=== PATIENT | female | born 1940 | race Caucasian/White ===

== ENCOUNTER → 2017-08-14 08:47 | Outpatient (CLI) | payer MEDICARE, SELFPAY ==
[2017-08-14 12:31] LABS: Absolute Lymphocyte Count 0.72 X10^3/ul (0.83-4.51); Absolute Neutrophil Count 4.7 X10^3/uL (2.0-7.7); Basophil# 0.02 X10^3/uL; Basophil% 0.3 % (0-1); Eosinophil# 0.12 X10^3/uL; Hematocrit 45.2 % (37-47); Hemoglobin 15.6 g/dl (12.0-15.0); Lymphocyte # 0.72 X10^3/ul (4.0); Mean Corp Hgb Conc 34.5 g/gl (32-36); Mean Corpuscular Hgb 30.3 pg (27.0-32.0); Mean Corpuscular Volume 87.8 fL (81-99); Mean Platelet Vol. 10.6 fl (6.2-12.0); Monocyte# 0.47 X10^3/uL; Monocyte% 7.8 % (0-10); Neutrophil # 4.65 X10^3/uL (2.7-7.7); Neutrophil % 77.7 % (47-70); Platelet Count 183 K/mm3 (150-450); RBC Distribution Width CV 14.6 % (11.6-14.6); RBC Distribution Width SD 46.7 fl (35.1-43.9); Red Blood Count 5.15 M/mm3 (4.2-5.4)
[2017-08-14 12:36] LABS: POSITIVE COUNT NO; POSITIVE DIFFERENTIAL NO; POSITIVE MORPHOLOGY NO
[2017-08-14 12:52] LABS: ALB/GLOB Ratio 1.4 RATIO (0.9-2.4); AST(SGOT) 16 U/L (15-37); Alanine Aminotransfer ALT/SGPT 21 U/L (13-56); Albumin, Serum 4.4 g/dL (3.2-5.0); Alkaline Phosphatase 83 U/L (45-117); Anion Gap 9 (5-15); BUN 8 mg/dL (7-18); Calcium,Total 9.8 mg/dL (8.5-10.1); Chloride 97 mmol/L (98-107); EST Glomerular Filtration Rate 74 mL/min (>60); Est Glom Filt Rate - Afr Amer 89 mL/min (>60); Globulin 3.1 g/dL (2.2-4.2); Glucose 86 mg/dL (74-106); Potassium 4.3 mmol/L (3.5-5.1); Protein, Total 7.5 g/dL (6.4-8.2); Sodium Level 134 mmol/L (136-145); T4 Free Direct 1.18 ng/dL (0.76-1.46); Thyroid Stim Hormone (TSH) 1.56 uIU/mL (0.358-3.74)
== END ==
PROVIDERS: Family Provider Family Medicine; PCP Family Medicine; Visit Provider Family Medicine
DX: I10 Essential (primary) hypertension (principal); E78.5 Hyperlipidemia, unspecified; F41.9 Anxiety disorder, unspecified
CPT/HCPCS: 36415; 80053; 84439; 84443; 85025

== ENCOUNTER → 2017-12-13 14:48 | Outpatient (CLI) | payer MEDICARE, SELFPAY ==
[2017-12-13 14:54] LABS: Bacteria 0 SEEN /hpf (None Seen); Mucous, Urine 0 SEEN /hpf (<or=2+); Red Blood Cells-Urine 0 SEEN /hpf (0-5); Squamous Epithelial Cells - UA 0 SEEN /hpf (5-10)
[2017-12-13 15:01] LABS: Color, Urine Yellow (Yellow); Glucose, Dipstick Normal (Normal); Ketone-Dipstick Negative (Negative); Leukocyte Esterase-Dipstick 25 /ul (Negative); Nitrite-Dipstick Negative (Negative); Occult Blood-Urine 25 /ul (Negative); Protein-Dipstick Negative (Negative); Urine Bilirubin Dipstick Negative (Negative); Urine Clarity Clear (Clear); Urine Urobilinogen Normal (Normal)
[2017-12-13 15:09] LABS: White Blood Cells 0-5 SEEN /hpf (0-5)
== END ==
PROVIDERS: Family Provider Family Medicine; PCP Family Medicine; Visit Provider Physician Assistant Surgical
DX: R31.9 Hematuria, unspecified (principal)
CPT/HCPCS: 81001; 87077; 87086; 87088; 87186

== ENCOUNTER → 2017-12-23 15:38 | Outpatient (CLI) | payer MEDICARE, SELFPAY ==
[2017-12-23 18:24] LABS: Color, Urine Yellow (Yellow); Glucose, Dipstick Normal (Normal); Ketone-Dipstick Negative (Negative); Leukocyte Esterase-Dipstick 100 /ul (Negative); Nitrite-Dipstick Negative (Negative); Occult Blood-Urine 25 /ul (Negative); Protein-Dipstick Negative (Negative); Specific Gravity, Urine 1.005 (1.002-1.030); Urine Bilirubin Dipstick Negative (Negative); Urine Clarity Clear (Clear); Urine Urobilinogen Normal (Normal)
== END ==
PROVIDERS: Family Provider Family Medicine; PCP Family Medicine; Visit Provider Family Medicine
DX: R31.0 Gross hematuria (principal); Z72.0 Tobacco use
CPT/HCPCS: 81002; 87086; 87088

== ENCOUNTER 2018-08-26 09:10 | Day surgery (SDC) | payer MEDICARE, SELFPAY ==
--- NOTE | 2018-07-20 12:38 | PCM.HP.BLA ---
History and Physical Date of Admission: 07/29/18 This H&P performed in my office 07/20/18 Pre-Op History and Physical ? HPI: The patient is a 77 year old female presenting for pre-operative visit. She is scheduled for?resection of vulvar lesions, for?MARKUS III on?07/29/18. ??Procedure discussed along with risks, benefits and complications. ?Other alternatives discussed for management. Consent form signed??Yes.? PAST?MEDICAL?HISTORY PAST MEDICAL HISTORY Diagnosis Date ? COPD (chronic obstructive pulmonary disease) (HCC) ? ? HTN (hypertension) ? ? Lymphoma (HCC) 03/2016 ? ? PAST?SURGICAL?HISTORY PAST SURGICAL HISTORY Procedure Laterality Date ? REMV CATARACT EXTRACAP,INSERT LENS ? ? ? bilateral ? TUBAL LIGATION HX ? CURRENT?MEDICATIONS ? Current Outpatient Medications: promethazine (PHENERGAN) 25 mg tablet Take 1 tablet by mouth every 6 hours as needed. FOR NAUSEA Disp: 90 tablet Rfl: 1 acetaminophen (TYLENOL) 325 mg tablet Take 325 mg by mouth every 6 hours as needed. Disp: Rfl: GUAIFENESIN/DEXTROMETHORPHAN (TUSSIN DM MAX ORAL) Take 1 teaspoonful by mouth as needed. using twice daily Disp: Rfl: PSEUDOEPHED/DP-HYDRAMINE (BENADRYL ALLERGY-SINUS ORAL) Take 1 tablet by mouth twice daily as needed. Disp: Rfl: TETRAHYDROZOLINE HCL/ZN SULF (ALLERGY RELIEF EYE DROPS OPHTHALMIC) Use 1 Drop in eyes as needed. Disp: Rfl: sodium chloride (SALINE NASAL) 0.65 % nasal spray Use 1 [place] in the nose as needed. Disp: Rfl: BENICAR HCT 40-12.5 mg per tablet Take 1 tablet by mouth once daily. Disp: 30 tablet Rfl: 0 amLODIPine (NORVASC) 10 mg tablet Take 1 tablet by mouth once daily. Disp: 30 tablet Rfl: 0 pravastatin (PRAVACHOL) 40 mg tablet Take 1 tablet by mouth once daily. Disp: 30 tablet Rfl: 0 ? No current facility-administered medications for this visit.? ? ALLERGIES:?Ampicillin; Codeine; Doxycycline; Iodine; Levaquin [Levofloxacin]; Lorabid [Loracarbef] ? PERSONAL HISTORY:? SOCIAL?HISTORY Social History ??Socioeconomic History ?Marital status: ?Spouse name: Not on file ?Number of children: Not on file ?Years of education: Not on file ?Highest education level: Not on file ??Social Needs ?Financial resource strain: Not on file ?Food insecurity - worry: Not on file ?Food insecurity - inability: Not on file ?Transportation needs - medical: Not on file ?Transportation needs - non-medical: Not on file ??Occupational History ?Occupation: RETIRED ??Tobacco Use ?Smoking status: Current Every Day Smoker ?Packs/day: 2.00 ?Years: 50.00 ?Pack years: 100 ?Types: Cigarettes ?Smokeless tobacco: Never Used ?Tobacco comment: Pt has cut back to 1 pack daily. ??Substance and Sexual Activity ?Alcohol use: No ?Drug use: No ?Sexual activity: Never ??Other Topics ?Concerns: ?Not on file ??Social History Narrative ?Not on file ? FAMILY HISTORY:? FAMILY?HISTORY FAMILY HISTORY Problem Relation Age of Onset ? Cancer Maternal Aunt ?unknown ? Breast Cancer Maternal Aunt ? ? Diabetes Sister ? ? Heart Father ? ? Stroke Mother ? ROS:? ? GENERAL: denies fevers or chills ENDOCRINOLOGY: has not been on steroids Cardiology : denies palpitations or chest pain Respiratory: denies SOB or cough Hematology: denies history of prolonged bleeding or easy bruising or VTE Allergy: Denies history of personal or family history of allergy to anesthesia ? ? ? PHYSICAL EXAMINATION: ? VITALS:?Weight 133 lb (60.3 kg). ? GENERAL:??The patient is well nourished, well hydrated in no acute distress. ?, The patient is oriented to time, place, and person. NECK:?Supple. No lynphadenopathy, normal thyroid, no thyromegaly. LUNGS:?Clear to auscultation bilaterally. no wheezes, rhonchi or rales HEART:?Regular rate and rhythm, Normal heart sounds and No murmurs or gallops GENITALIA:?Normal external genitalia, Urethral meatus normal, Bladder nontender, normal vagina and normal vaginal tone, normal cervix, normal uterus, size and consistency, normal adnexa without masses or tenderness and perineum WNL ? ? IMPRESSION:?MARKUS III ? PLAN:???The risks/benefits/alternatives and personal involved for the planned?vulvar resection?were reviewed with the patient. Her questions were answered to her satisfaction and she desires to proceed. ?Consent was signed. ?I reviewed with her postop instructions and expectations. ? ? I have reviewed and updated past medical and surgical history, medications and allergies? Fatimah Snider M.D.
[2018-07-29 11:12] VITALS: BP 147/77; PULSE 82; RESP 16; TEMP 36.2; O2SAT 99; BMI 26.1
--- NOTE | 2018-08-25 18:01 | PCM.HP.BLA ---
History and Physical Date of Admission: 08/26/18 77-year-old female with MARKUS 3 of the vulva presents for partial resection today. Patient has history of lymphoma and cervical cancer. Physical exam: Awake alert no acute distress Lungs clear no wheeze Heart S1-S2 regular rate and rhythm MEDICAL SALES REPRESENTATIVE exam performed previously shows a vulvar lesion that is raised, irregular borders. Approximately 4 to 5 cm in diameter. Assessment and plan: 77-year-old female with MARKUS 3 of the vulva for resection of the vulvar lesion. Risk benefits and alternatives have been discussed. Questions were answered to her satisfaction she desires to proceed. Please see previous H&P, this H&P axes and update to the one previously entered.
--- NOTE | 2018-08-25 18:06 | HP.PCM_ITS ---
History and Physical Date of Admission: 08/26/18 77-year-old female with MARKUS 3 of the vulva presents for partial resection today. Patient has history of lymphoma and cervical cancer. Physical exam: Awake alert no acute distress Lungs clear no wheeze Heart S1-S2 regular rate and rhythm BRAZER CONTROLLED ATMOSPHERIC FURNACE exam performed previously shows a vulvar lesion that is raised, irregular borders. Approximately 4 to 5 cm in diameter. Assessment and plan: 77-year-old female with MARKUS 3 of the vulva for resection of the vulvar lesion. Risk benefits and alternatives have been discussed. Questions were answered to her satisfaction she desires to proceed. Please see previous H&P, this H&P axes and update to the one previously entered.
--- NOTE | 2018-08-26 | IMM_PTH ---
PATIENT: LUIS DIALLO [place] [facility] [place][id number] AGE/SX: 77/F ROOM: RE08/26/[address]: Dr. Fatimah Snider MD : 1940 BED: DIS: 08/26/2018 SPEC #: [id number] RECD: 08/27/18 14:22 STATUS: CYNDY REQ #: [id number] HCINEDU: 08/26/18 00:[address]: Fatimah Snider DEPT: IMMUNOHISTOCHEMISTRY RECD BY: Renetta Cagle ENTERED: 08/27/18 14:23 SP TYPE: IMMUNO OTHR DR: Dr. Sammy Garcia MD Tissues: Vulva, NOS Procedures: P16 (add) KI-67 (initial) PHYSICIAN & [place] [address] SPECIMEN INFORMATION: Tissue Source: Vulvar lesion excision Clinical Info: Vulvar lesion Specimen Number: [id number] #2 CPT code: 10069, 33262 METHODOLOGY: Deparaffinized sections of prefer/formalin-fixed tissue or PAP/DQ stained slides are incubated with monoclonal/polyclonal antibodies/oligonucleotide probes. Localization is made via biotin free immunoperoxidase method. Appropriate controls are performed and reacted as expected. Results on target cell population are indicated in the following table: RESULTS: ANTIBODY / CLONE RESULT Block 2 Ki-67 (30-9) positive P16 (E6H4) positive, block staining These tests were developed and their performance characteristics determined by [facility]. They may not have been cleared or approved by the U.S. Food and Drug Administration. The FDA has determined that such clearance or approval is not necessary. 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 SJ:kalli 08/30/18
[2018-08-26 09:33] VITALS: BP 130/65; PULSE 90; RESP 18; TEMP 36.5; O2SAT 100; BMI 26.1
--- NOTE | 2018-08-26 10:45 | LES_PTH ---
PATIENT: LUIS DIALLO LOC: [facility] [place] U#:[id number] AGE/SX: 77/F ROOM: RE08/26/[address]: Dr. Fatimah Snider MD : 1940 BED: DIS: 08/26/2018 SPEC #: [id number] RECD: 08/26/18 13:16 STATUS: CYNDY TIFFANY #: [id number] CHINEDU: 08/26/18 10:[address]: Fatimah Snider DEPT: SURGICAL PATHOLOGY RECD BY: Mamadou Carvalho ENTERED: 08/26/18 13:37 SP TYPE: Lesion OTHR DR: Dr. 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 See comment. LELO:kalli 08/27/18 COMMENT Immunohistochemistry ([id number]) for surrogate HPV marker (p16) supports the above diagnosis. The focal area of moderate squamous dysplasia (MARKUS-II) is present at one peripheral resection margin of the intermediate sized piece. Clinical correlation and appropriate follow up are necessary. MICROSCOPIC DESCRIPTION Slides are reviewed. GROSS DESCRIPTION Received in fixative is one container labeled with the patient's name and designated vulvar lesions. The specimen consists of three polypoid/papillomatous portions of [place] mucosal tissue. The first tissue portion measures 2 x 1 x 1.2 cm, the second tissue portion measures 1.5 x 1.3 x 0.5 cm, and the third tissue portion measures 1.5 x 0.9 x 0.6 cm. The cut surfaces are inked and the tissue is serially cross-sectioned. The specimen is totally submitted as follows: 1 - largest tissue portion, 2 - second tissue portion, 3 - smallest tissue portion. / CE:kalli 08/26/18 TC: 5 [facility]: [id number]
[2018-08-26 11:19] VITALS: BP 108/68; BP 130/65; PULSE 84; RESP 16; TEMP 37.1; O2SAT 92
--- NOTE | 2018-08-26 11:20 | DCINST_ITS ---
You will use the following diet at home:: Regular Your food should be the consistency of: Regular Discharge Activity: May Drive, May Shower, May Take a Tub Bath - soak in plain warm water 1-2 times a day May resume sexual activity in: - - after follow up Call your doctor if your incision/area has: Sudden Increased Bleeding, Foul Smelling Discharge Call your doctor if you observe: Fever of 101 or Higher, - - Keep your sutures clean and dry. Rinse with water after bowel movements and urination. You may put triple antibiotic over the sutures 3 times a day to keep them protected. You may use stool softeners as needed Allergies/Adverse Reactions: Allergies ampicillin Allergy (Verified 07/22/18 11:11) Unknown codeine Allergy (Verified 07/22/18 11:11) Unknown levofloxacin [From Levaquin] Allergy (Verified 07/22/18 11:11) Unknown loracarbef [From Lorabid] Allergy (Verified 07/22/18 11:11) Unknown fentanyl Adverse Reaction (Verified 07/22/18 11:20) very groggy andout of it Medications to take at Discharge Alprazolam [Xanax Xr] 0.5 mg PO Q6H PRN PRN 03/24/16 Amlodipine Besylate/Benazepril [Amlodipine-Benazepril 10-20 mg] 10 mg PO DAILY 03/24/16 Pravastatin [Pravachol] 40 mg PO QHS 03/24/16 dextromethorphan HBr 15 mg capsule 15 mg PO Q8H PRN 12/11/17 diphenhydramine 25 mg capsule 25 mg PO QHS PRN 12/11/17 Olmesartan Medoxomil [Benicar] 40 mg PO DAILY PRN 07/22/18 proMETHazine tablet [Phenergan tablet] 25 mg PO Q6H PRN PRN 07/22/18 Primary Care Physician: Sammy Garcia MD [Primary Care Provider] - Test Results: Test results from this visit will be discussed in further detail at your follow- up appointment, if applicable. Please Follow Up With: Fatimah Snider MD - [phone] When: 1 week or as needed
--- NOTE | 2018-08-26 11:20 | PCM.OPRPT ---
Report of Operation Date of Procedure: 08/26/18 Pre-Operative Diagnosis: MARKUS III of vulva Post-Operative Diagnosis: same Surgery/Procedure Performed:: Resection of vulvar lesions Description of Surgical Findings:: Raised vulvar lesions, perineum and perianal area host/hostess restaurant: Micha Michaud Type of Anesthesia:: MAC/Supplemental/Local Anesthesiologist: John Manning Special Medications: none Specimen's removed: vulvar lesions Drains: none Estimated Blood Loss (mL): 20 Description of Procedure: The patient was taken operating room where she was prepped and draped in the dorsal lithotomy position. The vulvar lesions around the perineum and in the perianal area were noted. The skin underneath the lesions was infiltrated with 1% Xylocaine with dilute epinephrine solution. Elliptical incisions were made around the lesions and they were removed from the vulva. They were labeled and sent to pathology. The skin incisions were then closed with 3-0 Vicryl suture, the 2 larger areas were closed in a running standard fashion. The small lesion was closed with a single [id number] suture. The site was hemostatic. The patient was awakened taken to recovery room with stable condition. Vaginal sweep was performed by me. Sponge and needle counts were correct. Grafts/Implants Used: none - Complications none - Admit VTE Documentation VTE Present on Admission: No VTE Mechan Device Prophylaxis: SCD's
--- NOTE | 2018-08-26 11:23 | OP.PCM_ITS ---
Report of Operation Date of Procedure: 08/26/18 Pre-Operative Diagnosis: MARKUS III of vulva Post-Operative Diagnosis: same Surgery/Procedure Performed:: Resection of vulvar lesions Description of Surgical Findings:: Raised vulvar lesions, perineum and perianal area correspondence section supervisor: Micha Michaud Type of Anesthesia:: MAC/Supplemental/Local Anesthesiologist: John Manning Special Medications: none Specimen's removed: vulvar lesions Drains: none Estimated Blood Loss (mL): 20 Description of Procedure: The patient was taken operating room where she was prepped and draped in the dorsal lithotomy position. The vulvar lesions around the perineum and in the perianal area were noted. The skin underneath the lesions was infiltrated with 1% Xylocaine with dilute epinephrine solution. Elliptical incisions were made around the lesions and they were removed from the vulva. They were labeled and sent to pathology. The skin incisions were then closed with 3-0 Vicryl suture, the 2 larger areas were closed in a running standard fashion. The small lesion was closed with a single [id number] suture. The site was hemostatic. The patient was awakened taken to recovery room with stable condition. Vaginal sweep was performed by me. Sponge and needle counts were correct. Grafts/Implants Used: none - Complications none - Admit VTE Documentation VTE Present on Admission: No VTE Mechan Device Prophylaxis: SCD's
[2018-08-26 11:24] VITALS: BP 110/64; BP 130/65; PULSE 82; RESP 16; O2SAT 93
[2018-08-26 11:30] VITALS: BP 106/67; BP 130/65; PULSE 82; RESP 16; O2SAT 96
[2018-08-26 11:35] VITALS: BP 105/65; BP 130/65; PULSE 76; RESP 16; TEMP 36.9; O2SAT 92
[2018-08-26 12:19] VITALS: BP 130/65
== END 2018-08-26 12:26 | disposition home or self-care (01) ==
LOC: SDC 15:14
PROVIDERS: Family Provider Family Medicine; PCP Family Medicine; Referring Provider Obstetrics & Gynecology; Visit Provider Obstetrics & Gynecology
PROC: (CPT 56620; principal; 2018-08-26 10:30)
DX: D07.1 Carcinoma in situ of vulva (principal); A63.0 Anogenital (venereal) warts; F41.9 Anxiety disorder, unspecified; Z85.41 Personal history of malignant neoplasm of cervix uteri; C85.90 Non-Hodgkin lymphoma, unspecified, unspecified site; E78.00 Pure hypercholesterolemia, unspecified; Z79.899 Other long term (current) drug therapy; I10 Essential (primary) hypertension; G25.81 Restless legs syndrome; F17.200 Nicotine dependence, unspecified, uncomplicated
CPT/HCPCS: 00906; 56620; 88305; 88341; 88342; J7120; J2405

== ENCOUNTER → 2019-06-08 10:43 | Outpatient (CLI) | payer MEDICARE, SELFPAY ==
--- NOTE | 2019-06-08 10:51 | VDLE_ITS ---
Reason For Study: Edema RIGHT GSV is normal. CFV is compressible, spontaneous, phasic, competent and demonstrates normal augmentation. FV is compressible, spontaneous, phasic, competent and demonstrates normal augmentation. POP V is compressible, spontaneous, phasic, competent and demonstrates normal augmentation. T/P Trunk is compressible. PTV is compressible. RT PerV is compressible. Procedure Exam performed in department. A preliminary report was called and/or faxed to Jose. Interpretation Summary Deep veins of the right lower extremity are patent and compressible segmentally. There is no evidence of right lower extremity deep vein thrombosis. Valvular competence appears intact within the proximal deep venous system on the right . The right great saphenous vein appears patent and compressible segmentally. Ordering Physician: Sammy Garcia Referring Physician: Sammy Garcia Performed By: Aide Chung RVT
== END ==
PROVIDERS: PCP Family Medicine; Referring Provider Family Medicine; Visit Provider Family Medicine
DX: R60.0 Localized edema (principal)
CPT/HCPCS: 93971

== ENCOUNTER 2020-02-02 08:13 | Day surgery (SDC) | payer MEDICARE, SELFPAY ==
--- NOTE | 2020-01-23 11:18 | PCM.HP.BLA ---
History and Physical Date of Admission: 02/02/20 HPI: The patient is a 79 year old female presenting for pre-operative visit. She is scheduled for?wide local excision, for?MARKUS III of the vulva on?02/02/2020. ??Procedure discussed along with risks, benefits and complications. ?Other alternatives discussed for management. Consent form signed??Yes.? PAST MEDICAL HISTORY PAST MEDICAL HISTORY Diagnosis Date ? Cervical cancer (HCC) ? ? COPD (chronic obstructive pulmonary disease) (HCC) ? ? HTN (hypertension) ? ? Lymphoma (HCC) 03/2016 ? ? PAST SURGICAL HISTORY PAST SURGICAL HISTORY Procedure Laterality Date ? PART SIMPLE REMV VULVA ? 08/26/2018 ? Vulvar lesions- several removed ??Markus II ? REMV CATARACT EXTRACAP,INSERT LENS ? ? ? bilateral ? TUBAL LIGATION HX ? CURRENT MEDICATIONS Current Outpatient Medications Medication Sig Dispense Refill ? oxybutynin (DITROPAN) 5 mg tablet Take 1 tablet by mouth twice daily. (Patient not taking: Reported on 04/08/2019 ) 60 tablet 1 ? olmesartan (BENICAR) 40 mg tablet 40 mg. ? ? ? fluorometholone (FML LIQUID FILM) 0.1 % ophthalmic suspension 1 Drop twice daily. Both eyes ? 0 ? fluticasone (FLONASE) 50 mcg/actuation nasal spray Use 2 Sprays in each nostril once daily. Rinse mouth after use. (Patient not taking: Reported on 04/08/2019 ) 1 Bottle 0 ? ALPRAZolam (XANAX) 0.25 mg tablet Take 0.25 mg by mouth every 8 hours as needed. ? 0 ? promethazine (PHENERGAN) 25 mg tablet ? ? 0 ? acetaminophen (TYLENOL) 325 mg tablet Take 325 mg by mouth every 6 hours as needed. ? ? ? GUAIFENESIN/DEXTROMETHORPHAN (TUSSIN DM MAX ORAL) Take 1 teaspoonful by mouth as needed. using twice daily ? ? ? PSEUDOEPHED/DP-HYDRAMINE (BENADRYL ALLERGY-SINUS ORAL) Take 1 tablet by mouth twice daily as needed. ? ? ? TETRAHYDROZOLINE HCL/ZN SULF (ALLERGY RELIEF EYE DROPS OPHTHALMIC) Use 1 Drop in eyes as needed. ? ? ? sodium chloride (SALINE NASAL) 0.65 % nasal spray Use 1 [place] in the nose as needed. ? ? ? amLODIPine (NORVASC) 10 mg tablet Take 1 tablet by mouth once daily. 30 tablet 0 ? pravastatin (PRAVACHOL) 40 mg tablet Take 1 tablet by mouth once daily. 30 tablet 0 ? No current facility-administered medications for this visit.? ? ALLERGIES:?Ampicillin, Codeine, Doxycycline, Fentanyl, Iodine, Levaquin [Levofloxacin], and Lorabid [Loracarbef] ? PERSONAL HISTORY:? SOCIAL HISTORY Social History ? Tobacco Use ? Smoking status: Current Every Day Smoker ? ? Packs/day: 2.00 ? ? Years: 50.00 ? ? Pack years: 100.00 ? ? Types: Cigarettes ? Smokeless tobacco: Never Used ? Tobacco comment: Pt has cut back to 1 pack daily. Substance Use Topics ? Alcohol use: No ? Drug use: No ? FAMILY HISTORY:? FAMILY HISTORY FAMILY HISTORY Problem Relation Age of Onset ? Cancer Maternal Aunt ?unknown ? Breast Cancer Maternal Aunt ? ? Diabetes Sister ? ? Heart Father ? ? Stroke Mother ? ? Skin Cancer Mother ? ? REVIEW OF SYMPTOMS: GENERAL: denies fevers or chills ENDOCRINOLOGY: has not been on steroids Cardiology : denies palpitations or chest pain Respiratory: denies SOB or cough Hematology: denies history of prolonged bleeding or easy bruising or VTE Allergy: Denies history of personal or family history of allergy to anesthesia ? ? PHYSICAL EXAMINATION: ? VITALS:?There were no vitals taken for this visit. ? GENERAL:??The patient is well nourished, well hydrated in no acute distress. ?, The patient is oriented to time, place, and person. NECK:?Supple. No lynphadenopathy, normal thyroid, no thyromegaly. LUNGS:?Clear to auscultation bilaterally. no wheezes, rhonchi or rales HEART:?Regular rate and rhythm, Normal heart sounds and No murmurs or gallops ? IMPRESSION:?MARKUS III ? PLAN:???The risks/benefits/alternatives and personal involved for the planned?wide local excision of vulva?were reviewed with the patient. Her questions were answered to her satisfaction and she desires to proceed. ?Consent was signed. ?I reviewed with her postop instructions and expectations. ? ? I have reviewed and updated past medical and surgical history, medications and allergies. this history and physical was completed in my office on 01/23/2020. Procedure Criteria Procedure Type: Elective COVID Risk Discussion: The surgeon/proceduralist and patient have discussed in detail the risk of exposure to and/or potential harm posed by the COVID-19 virus with having a surgery/procedure at this time versus the risk of delaying the surgery/procedure. It is not possible to know either the risk of delaying the surgery or procedure or chance of getting an infection with perfect accuracy, but a joint decision was made between the patient and the surgeon/proceduralist to proceed at this time with the scheduled surgery/procedure as indicated on the consent form.
--- NOTE | 2020-02-02 | IMM_PTH ---
PATIENT: LUIS DIALLO LOC: [facility] [place] U#:[id number] AGE/SX: 79/F ROOM: RE02/02/[address]: Dr. Fatimah Snider MD : 1940 BED: DIS: 02/02/2020 SPEC #: [id number] RECD: 02/03/20 12:54 STATUS: CYNDY REQ #: [id number] CHINEDU: 02/02/20 00:[address]: Fatimah Snider DEPT: IMMUNOHISTOCHEMISTRY RECD BY: Renetta Cagle ENTERED: 02/03/20 12:55 SP TYPE: IMMUNO OTHR DR: Dr. Sammy Garcia MD Tissues: B - Perineum, NOS C - Perineum, NOS D - Perineum, NOS Procedures: p16 (initial) KI-67 (add) PHYSICIAN & INSTITUTION [place] [id number] SPECIMEN INFORMATION: Tissue Source: B - Right perineum, C - Left perineum, D - Inferior midline perineum Clinical Info: MARKUS III Specimen Number: [id number] B-D CPT code: 83376 x3, 39010 x3 METHODOLOGY: Deparaffinized sections of prefer/formalin-fixed tissue or PAP/DQ stained slides are incubated with monoclonal/polyclonal antibodies/oligonucleotide probes. Localization is made via biotin free immunoperoxidase method. Appropriate controls are performed and reacted as expected. Results on target cell population are indicated in the following table: RESULTS: ANTIBODY / CLONE RESULT Block B P16 (E6H4) positive, block staining Ki-67 (30-9) positive, high Block C P16 (E6H4) positive, block staining Ki-67 (30-9) positive, high Block D P16 (E6H4) positive, block staining Ki-67 (30-9) positive, moderate These tests were developed and their performance characteristics determined by [facility]. They may not have been cleared or approved by the U.S. Food and Drug Administration. The FDA has determined that such clearance or approval is not necessary. The above immunohistochemical/dualISH markers are ordered and reviewed by the Pathologist. INTERPRETATION: B. Right perineum, excisional biopsy: Moderate to severe squamous dysplasia. C. Left perineum, excisional biopsy: Moderate to severe squamous dysplasia. D. Inferior midline perineum, excisional biopsy: Mild to moderate squamous dysplasia. SJ:kalli 02/06/20
[2020-02-02 08:39] VITALS: BP 121/64; PULSE 86; RESP 20; TEMP 36.2; O2SAT 100; BMI 28.5
[2020-02-02] MEDS: Lactated Ringers 1,000 ML 40 ML IV (09:10)
--- NOTE | 2020-02-02 09:55 | VUL_PTH ---
PATIENT: LUIS DIALLO [place] [facility] [place][id number] AGE/SX: 79/F ROOM: RE02/02/[address]: Dr. Fatimah Snider MD : 1940 BED: DIS: 02/02/2020 SPEC #: [id number] RECD: 02/02/20 11:24 STATUS: CYNDY TIFFANY #: [id number] CHINEDU: 02/02/20 09:[address]: Fatimah Snider DEPT: SURGICAL PATHOLOGY RECD BY: Ernst Rowe ENTERED: 02/02/20 13:38 SP TYPE: VULVA BX OTHR DR: Dr. Sammy Garcia MD Tissues: A - Vulva, NOS B - Perineum, NOS C - Perineum, NOS D - Perineum, NOS Procedures: Surgery Specimen Level IV HEADER OPERATION: Wide local excision of vulvar lesions PRE-OP DIAGNOSIS: MARKUS III TISSUE SUBMITTED: A - Inferior right labia, B - Right perineum, C - Left perineum, D - Inferior midline perineum MICROSCOPIC DIAGNOSIS A. Inferior right labia, excision: Fragments of squamous mucosa, negative for squamous dysplasia. B. Right perineum, excision: Moderate to severe squamous dysplasia, MARKUS II-III (0.9 cm in greatest width). Resection margins are free of dysplastic changes. See comment. C. Left perineum, excisional biopsy: Moderate to severe squamous dysplasia, MARKUS II-III (1 cm in greatest width). Focal moderate squamous dysplasia is noted at the resection margin. See comment. D. 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 Resections margins are free of dysplastic changes. See comment. SJ:kalli 02/03/20 COMMENT B-D. Immunohistochemistry ([id number]) for surrogate HPV marker (p16) supports the above diagnosis. Clinical correlation and appropriate follow up are necessary. 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 Case has been reviewed in consultation with Dr. Leyva who concurs with the above diagnosis. IDC:AM MICROSCOPIC DESCRIPTION Slides are reviewed. GROSS DESCRIPTION A - Received in fixative is one container labeled with the patient's name and designated inferior lateral right labia. The specimen consists of two pieces of robles-white skin each measuring 0.5 x 0.4 x 0.2 cm. The entire specimen is submitted in one cassette. B - Received in fixative is one container labeled with the patient's name and designated right perineum. The specimen consists of two pieces of robles-white to robles-brown skin measuring 1 x 1 x 0.4 cm and 0.7 x 0.2 x 0.2 cm. The larger piece is inked and serially sectioned. The entire specimen is submitted in one cassette. C - Received in fixative is one container labeled with the patient's name and designated left perineum. The specimen consists of a piece of robles-white to light brown skin measuring 1.4 x 1 x 0.3 cm. The specimen is inked, serially sectioned and submitted entirely in one cassette. D - Received in fixative is one container labeled with the patient's name and designated inferior midline perineum. The specimen consists of a piece of robles-white skin measuring 1 x 0.5 x 0.2 cm. The specimen is inked, bisected and submitted entirely in one cassette. / SJ:rg 02/02/20 TC: CPT: 55864 x4
--- NOTE | 2020-02-02 11:04 | OP.PCM_ITS ---
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 She is noted to have 2 lesions opposing each other on the perineum, 1 lesion on the inferior perineum about intermediate between the vaginal introitus and the anus. She also had a raised lesion on the right lateral inferior labia majora. The lesions will infiltrated subcu tenuously with 1% Xylocaine with dilute epinephrine solution. I then did a wide local elliptical incision around each lesion. The lesions were labeled separately sent to pathology. Biopsy sites were then all closed with 3-0 Vicryl Rapide suture in a running standard fashion and hemostasis was noted. Sponge and needle counts were correct. STart time 1048 am Stop time 1101 am Grafts/Implants Used: none - Complications none - Admit VTE Documentation VTE Present on Admission: No VTE Mechan Device Prophylaxis: SCD's VTE Pharm Prophylaxis ordered?: No Reason prophylaxis not ordered:: Procedure Not Indicated
[2020-02-02 11:10] VITALS: BP 111/65; BP 121/64; PULSE 74; RESP 14; O2SAT 93
--- NOTE | 2020-02-02 11:10 | DCINST_ITS ---
- Discharge Diagnoses Reason(s) for Visit for Discharge Instructions: Vulvar excision You will use the following diet at home:: No restrictions Your food should be the consistency of: Regular Discharge Activity: Return to Normal Activity, May Drive May shower in (days): 1 May resume sexual activity in: 3 weeks Call your doctor if your incision/area has: Continuous Slow Oozing, Sudden Increased Bleeding, Foul Smelling Discharge Call your doctor if you observe: Fever of 101 or Higher Cleanse incision/area with: Soap & Water, - - Keep the area clean and dry and you may use a triple antibiotic ointment to the lesion as needed to protect the area. Allergies/Adverse Reactions: Allergies ampicillin Allergy (Verified 02/02/20 08:37) Unknown codeine Allergy (Verified 02/02/20 08:37) Unknown levofloxacin [From Levaquin] Allergy (Verified 02/02/20 08:37) Unknown loracarbef [From Lorabid] Allergy (Verified 02/02/20 08:37) Unknown fentanyl Adverse Reaction (Verified 02/02/20 08:37) very groggy andout of it Medications to take at Discharge Alprazolam [Xanax Xr] 0.5 mg PO Q6H PRN PRN 03/24/16 Amlodipine Besylate/Benazepril [Amlodipine-Benazepril 10-20 mg] 10 mg PO DAILY 03/24/16 Pravastatin [Pravachol] 40 mg PO QHS 03/24/16 dextromethorphan HBr 15 mg capsule 15 mg PO Q8H PRN 12/11/17 diphenhydramine HCl 25 mg capsule 25 mg PO QHS PRN 12/11/17 proMETHazine tablet [Phenergan tablet] 25 mg PO Q6H PRN PRN 07/22/18 Primary Care Physician: Sammy Garcia MD [Primary Care Provider] - Test Results: Test results from this visit will be discussed in further detail at your follow- up appointment, if applicable. Please Follow Up With: Fatimah Snider MD - [phone] When: IN my office in approx 7-10 days or as needed
[2020-02-02 11:15] VITALS: BP 112/72; BP 121/64; PULSE 78; RESP 12; TEMP 36.3; O2SAT 97
[2020-02-02 11:19] VITALS: BP 116/61; BP 121/64; PULSE 74; RESP 116; O2SAT 94
[2020-02-02 11:24] VITALS: BP 104/60; BP 121/64; PULSE 74; RESP 16; TEMP 36.4; O2SAT 95
[2020-02-02 12:17] VITALS: BP 108/54; BP 121/64; PULSE 79; RESP 16; TEMP 36.6; O2SAT 94
== END 2020-02-02 12:25 | disposition home or self-care (01) ==
LOC: SDC 08:17 → AC 08:18
PROVIDERS: Anesthesiology; PCP Family Medicine; Referring Provider Obstetrics & Gynecology; Visit Provider Obstetrics & Gynecology
PROC: (CPT 56605; principal; 2020-02-02 09:45)
DX: D07.1 Carcinoma in situ of vulva (principal); Z11.59 Encounter for screening for other viral diseases; I10 Essential (primary) hypertension; F41.9 Anxiety disorder, unspecified; J44.9 Chronic obstructive pulmonary disease, unspecified; G25.81 Restless legs syndrome; E78.00 Pure hypercholesterolemia, unspecified; Z78.0 Asymptomatic menopausal state; Z85.72 Personal history of non-Hodgkin lymphomas; Z85.41 Personal history of malignant neoplasm of cervix uteri; Z79.899 Other long term (current) drug therapy; F17.210 Nicotine dependence, cigarettes, uncomplicated
CPT/HCPCS: 56605; 56606 ×3; 87635; 88305; 88341; 88342; C9803; J7120; U0003

== ENCOUNTER → 2020-04-10 14:44 | Outpatient (CLI) | payer MEDICARE, SELFPAY ==
--- NOTE | 2020-04-10 15:00 | PET_ITS ---
EXAMINATION: FDG PET/CT INDICATIONS: A 79-year-old female with history of cervical carcinoma and lymphoma presenting for restaging examination. COMPARISON EXAMINATION: None available INDEX LESION SIZE SUV INTERPRETATION Left upper posterolateral hemithorax pleural interface 5.1-cm (frame 197) 4.3 Fulfills quantitative criteria for viable neoplasm TECHNIQUE: Following the intravenous administration of 12.47 mCi of F-18 deoxyglucose via the left antecubital fossa, multiplanar image acquisitions of the neck, chest, abdomen and pelvis to level of mid thigh, obtained at one hour post radiopharmaceutical administration contemporaneously interpreted with the current CT of the neck, chest, abdomen and pelvis to level of mid thigh, dated 04/10/2020 via coregistration reveal: SERUM GLUCOSE LEVEL: 109 mg/dl. HEIGHT: 60 inches. WEIGHT: 140 lbs. FINDINGS: 1. Increased FDG concentration is observed in the left upper posterior-posterolateral hemithorax at the pleural interface generating a calculated maximal standard uptake value of 4.3. The maximal axial diameter of the corresponding metabolic-morphologic abnormality on review of CT of the chest dated 04/10/2020 is 5.1-cm (transverse). 2. Normal physiologic distribution of the radiopharmaceutical is apparent in the hepatic (2.9) and splenic parenchyma, both renal units, bladder and visualized intestinal tract. The visualized portion of the cerebral cortex demonstrate symmetric and preserved glucose metabolism. Diffuse radiopharmaceutical concentration is noted in all four quadrants of the abdomen and pelvis most accentuated in the right mid abdominal mesentery, linear in presentation in the axial plane. Pertinent CT findings are as follows: CHEST: Emphysematous changes appear evident in the bilateral upper lung zones. There is atherosclerotic calcification defined in the thoracic aorta without evidence of dilatation-aneurysm formation. Coronary arterial calcification is observed. Bilateral axillary subcentimeter soft tissue densities with fatty hilus are ametabolic. A small hiatal hernia appears evident. ABDOMEN AND PELVIS: There is atherosclerotic calcification defined in the abdominal aorta without evidence of dilatation-aneurysm formation. Pelvic arterial calcification is demonstrated. Colonic diverticulosis is encountered without evidence of diverticulitis. Bilateral subcentimeter inguinal soft tissue densities reveal no evidence of increased tracer uptake. There is calcification noted in the right renal unit. SKELETAL: Degenerative changes are noted in the cervical, thoracic and lumbar spine. There are no sclerotic, mixed sclerotic-lytic and/or primarily lytic changes noted on review of the appendicular, axial skeletal structures. PET/PET/CT Tumor Base -Thigh Subs IMPRESSION: 1. ABNORMAL EXAMINATION INDICATIVE OF MALIGNANT VIABLE NEOPLASM. 2. Increased glucose concentration observed in the left hemithorax at the pleural interface fulfills quantitative criteria for viable neoplasm. (Blake, et al, Chest 122:1918, 2002). Histopathologic analysis is recommended. 3. No other quantitatively significant hypermetabolic abnormalities are noted. Electronic Signature Juan Smalls D.O. Accurate Quantification of SUVs for this report are calculated using the exclusive [employer]? Technology.??Exclusive [place].S. Patent [employer]? Technology (U.S. Patent No. [phone]). Electronically Signed: Juan Smalls DO at 10:08 EST Tel , Service support ,
== END ==
PROVIDERS: PCP Family Medicine; Referring Provider Internal Medicine Hematology & Oncology; Visit Provider Internal Medicine Hematology & Oncology
DX: C53.8 Malignant neoplasm of overlapping sites of cervix uteri (principal)
CPT/HCPCS: 78815; A9552

== ENCOUNTER → 2020-05-29 07:52 | Outpatient (CLI) | payer MEDICARE, SELFPAY ==
[2020-05-29] VITALS (12 sets, daily range): BP systolic 99–154; BP diastolic 57–111; PULSE 78–97; RESP 12–21; TEMP 36.6; O2SAT 92–100; BMI 27.3
--- NOTE | 2020-05-29 | IMM_PTH ---
PATIENT: LUIS DIALLO LOC: CT U#:[id number] AGE/SX: 84/F ROOM: RE05/29/[address]: Dr. Steve Diego MD : 1940 BED: DIS: SPEC #: [id number] RECD: 05/30/20 10:28 STATUS: CYNDY REQ #: [id number] CHINEDU: 05/29/20 00:[address]: Steve Diego DEPT: IMMUNOHISTOCHEMISTRY RECD BY: Renetta Cagle ENTERED: 05/30/20 10:30 SP TYPE: IMMUNO OTHR DR: Dr. Sammy Garcia MD Tissues: Lung, NOS Procedures: RCC (add) NAPSIN A (add) CD31 (add) CK20 (add) CK5-6 (add) CK7 (add) CK8 (add) HEP PAR (add) SC (add) TTF1 (add) FACTOR VIII (add) Pankeratin (add) P40 (add) ER (initial) PHYSICIAN & [address] [address] SPECIMEN INFORMATION: Tissue Source: Left lung wall lesion, CT-guided core biopsy Clinical Info: Left lung wall lesion Specimen Number: [id number] CPT code: 99735, 02640 x13 METHODOLOGY: Deparaffinized sections of prefer/formalin-fixed tissue or PAP/DQ stained slides are incubated with monoclonal/polyclonal antibodies/oligonucleotide probes. Localization is made via biotin free immunoperoxidase method. Appropriate controls are performed and reacted as expected. Results on target cell population are indicated in the following table: RESULTS: ANTIBODY / CLONE RESULT ER (6F11) negative SC (1E2) negative AE1-3 (AE1/AE3/PCK26) positive CK7 (OV-TL12/30) negative CK8 (40namaD88) negative CK20 (KS20.8) negative CD31 (DEWEY/70A) negative Factor VIII (R Ag) negative TTF-1 (8G7G3/1) negative Napsin A (Rabbit Polyclonal) negative HepPar (OCh1E5) negative RCC (PN-15) negative CK5-6 (D5 & 1684) positive P40 (BC28) positive These tests were developed and their performance characteristics determined by [facility]. They may not have been cleared or approved by the U.S. Food and Drug Administration. The FDA has determined that such clearance or approval is not necessary. The above immunohistochemical/dualISH markers are ordered and reviewed by the Pathologist. INTERPRETATION: Left lung wall lesion, CT-guided core biopsy: Non-small cell carcinoma, favor squamous cell carcinoma. Lymph-vascular invasion not seen. SJ:kalli 05/31/2020
[2020-05-29 08:08] LABS: Absolute Lymphocyte Count 0.88 X10^3/uL (0.83-4.51); Absolute Neutrophil Count 4.6 X10^3/uL (2.0-7.7); Basophil# 0.03 X10^3/uL; Basophil% 0.5 % (0-1); Eosinophil# 0.13 X10^3/uL; Eosinophils% 2.2 % (0-5); Hematocrit 48.4 % (37-47); Lymphocyte # 0.88 X10^3/ul (4.0); Lymphocyte % 14.7 % (19-41); Mean Corp Hgb Conc 33.1 g/dL (32-36); Mean Corpuscular Hgb 29.9 pg (27.0-32.0); Mean Corpuscular Volume 90.3 fL (81-99); Mean Platelet Vol. 9.5 fl (6.2-12.0); Monocyte# 0.35 X10^3/uL; Monocyte% 5.9 % (0-10); NRBC Flagged by Analyzer 0 % (0-5); Neutrophil # 4.57 X10^3/uL (2.7-7.7); Neutrophil % 76.5 % (47-70); Platelet Count 178 K/mm3 (150-450); RBC Distribution Width CV 14.6 % (11.6-14.6); RBC Distribution Width SD 48.7 fl (35.1-43.9); Red Blood Count 5.36 M/mm3 (4.2-5.4)
--- NOTE | 2020-05-29 08:10 | CT_ITS ---
PROCEDURE: CT GUIDED CORE NEEDLE BIOPSY OF A peripheral based left upper lobe nodular density LUNG LESION INDICATION: Female, 79 years old. Left lung WALL mass biopsy PHYSICIAN: Dr. SANJUANA Whitney CONSENT: Written informed consent was obtained having explained the risks, benefits and alternatives in detail with the patient who accepted the risks and agreed to proceed. Laboratory review and clinical assessment was performed. CONSCIOUS SEDATION PROTOCOL: The Drugs used were: 2 mg Versed, IV., and 25 mcg Fentanyl, IV. The sedation time was: 19 minutes. Conscious sedation was started at 9:07 AM and terminated at 9:26 AM. The conscious sedation protocol was independently monitored. RADIATION DOSAGE (If Supplied By Facility): CTDIvol = ( 17.5 ) mGy, DLP = ( 380.7 ) mGycm Individualized dose optimization techniques were used for this CT. TECHNIQUE: The patient was placed in the prone position. A noncontrast CT was performed to localize the lesion in the posterior aspect of the left upper lobe . The skin surface was prepped and draped in a sterile fashion. 1% lidocaine was used for local anesthesia. Using CT guidance, a 28 coaxial biopsy device was advanced to the periphery of the lesion. A total of 5 core specimens were obtained. The specimens were placed in a formalin solution. A post procedure CT demonstrated no adverse sequelae or pneumothorax. The patient tolerated the procedure well without adverse event. A negative biopsy does not exclude malignancy. Further imaging or clinical followup based on patient condition and degree of clinical suspicion for malignancy. Suggest rebiopsy, if biopsy results do not match with clinical scenario. CT/Biopsy/Inj or Needle Placement IMPRESSION: 1. CT directed core needle biopsy of the peripheral based pulmonary density in the left upper lobe using CT image guidance with image documentation as described. Pathology results are pending. 2. Conscious Sedation protocol utilized with independent monitoring. Electronically Signed: Ollie Camarena MD at 9:50 EST , Service support ,
[2020-05-29 08:25] LABS: International Normalized Ratio 0.9; Prothrombin Time (Protime)PT. 11.7 SECONDS (11.7-14.9)
[2020-05-29] MEDS: Midazolam 2 MG/2 ML Syringe IV (09:07)
[2020-05-29] MEDS: fentaNYL 100 MCG/2 ML Ampul IV (09:09)
--- NOTE | 2020-05-29 09:30 | RAD_ITS ---
STUDY: X-RAY CHEST REASON FOR EXAM: Female, 79 years old. IMMEDIATELY POST LUNG BIOPSY TECHNIQUE: AP inspiration and expiration views. COMPARISON: Comparison is made with prior study dated 10/20/2014. FINDINGS: Immediate post left lung biopsy radiographs. No evidence of pneumothorax. RAD/Chest Insp/Exp 2 View IMPRESSION: No evidence of pneumothorax on the immediate post left lung biopsy radiographs. Electronically Signed: Ollie Camarena MD at 11:03 EST , Service support ,
--- NOTE | 2020-05-29 09:30 | ASPIGT_PTH ---
PATIENT: LUIS DIALLO LOC: CT U#:[id number] AGE/SX: 84/F ROOM: RE05/29/[address]: Dr. Steve Diego MD : 1940 BED: DIS: SPEC #: [id number] RECD: 05/29/20 09:50 STATUS: CYNDY TIFFANY #: [id number] CHINEDU: 05/29/20 09:[address]: Steve Diego DEPT: SURGICAL PATHOLOGY RECD BY: Alena Damon ENTERED: 05/29/20 09:51 SP TYPE: ASP RAD OTHR DR: Dr. Sammy Garcia MD Tissues: Lung, NOS Procedures: FNA Specimen Adequacy Special Stain Group II Surgery Specimen Level IV Imprint (control) HEADER OPERATION: Left lung wall lesion, CT-guided core biopsy PRE-OP DIAGNOSIS: Left lung wall lesion TISSUE SUBMITTED: Left lung wall lesion, CT-guided core biopsy 20-gauge MICROSCOPIC DIAGNOSIS Left lung wall lesion, CT-guided core biopsy: Non-small cell carcinoma, favor squamous cell carcinoma. See comment. LELO:kalli 05/30/2020 COMMENT The specimen is evaluated at the time of biopsy by Dr. Shah. Immediate Evaluation = Malignant cells present derived from non-small cell carcinoma. Immunohistochemistry ([id number]) supports the above diagnosis. Correlation with clinical, radiologic findings and appropriate follow up are necessary. Molecular studies on the tumor can be performed if clinically indicated. Please notify the laboratory if they are needed. Case has been reviewed in consultation with Dr. Leyva who concurs with the above diagnosis. IDC:AM MICROSCOPIC DESCRIPTION Slides are reviewed. GROSS DESCRIPTION Received in fixative is one container labeled with the patient's name and designated left lung, CT-guided core biopsy. The specimen consists of multiple irregular fragments of robles soft tissue that in aggregate measure 0.7 x 0.3 x 0.1 cm. The specimen is totally submitted in one cassette. Two touch imprints are prepared at the time of core biopsy. / LELO:kalli 05/29/20 TC:0 CPT: 29067, 26677 ADDENDUM ADDENDUM ADDENDUM ADDENDUM ADDENDUM ADDENDUM 06/06/2020 09:39 ADDENDUM 06/06/2020 09:39 ADDENDUM 06/06/2020 09:39 ADDENDUM 06/06/2020 09:39 ADDENDUM 06/06/2020 09:39 PD-L1 (KEYTRUDA) IMMUNOHISTOCHEMICAL ANALYSIS FROM [facility] RESULTS: Tumor proportion score: 1-2% / Positive Please see complete report in e-chart or EMR
--- NOTE | 2020-05-29 11:30 | RAD_ITS ---
STUDY: X-RAY CHEST REASON FOR EXAM: Female, 79 years old. 2 hour post lung biopsy TECHNIQUE: AP inspiration and expiration views. COMPARISON: Comparison is made with prior examination done earlier in the day. FINDINGS: No evidence of pneumothorax on the 2 hour delayed post left lung biopsy radiographs. RAD/Chest Insp/Exp 2 View IMPRESSION: No evidence of pneumothorax on the 2 hour delayed post left lung biopsy radiographs. Electronically Signed: Ollie Camarena MD at 11:58 EST , Service support ,
== END ==
PROVIDERS: PCP Family Medicine; Referring Provider Internal Medicine Hematology & Oncology; Visit Provider Internal Medicine Hematology & Oncology
DX: C34.92 Malignant neoplasm of unspecified part of left bronchus or lung (principal); J94.8 Other specified pleural conditions
CPT/HCPCS: 32408; 36415; 71046; 77012; 85025; 85610; 88172; 88305; 88313; 88341; 88342; 99155; 99156; J7040; A4216; C2613

== ENCOUNTER → 2020-08-06 10:32 | Outpatient (CLI) | payer MEDICARE, SELFPAY ==
[2020-05-29 08:30] VITALS: BMI 27.3
--- NOTE | 2020-08-06 13:48 | VDLE_ITS ---
Reason For Study: DVT RIGHT GSV is normal. CFV is compressible, spontaneous, phasic, competent and demonstrates normal augmentation. FV is compressible, spontaneous, phasic, competent and demonstrates normal augmentation. POP V is compressible, spontaneous, phasic, competent and demonstrates normal augmentation. T/P Trunk is compressible. PTV is compressible. RT PerV is compressible. Procedure Exam performed in department. This is a venous duplex using B-mode, color flow and spectral Doppler. A preliminary report was called and/or faxed to Dr. Padgett. VL/Venous Duplex US, Unilateral Interpretation Summary There is no evidence of right lower extremity deep vein thrombosis. Right great saphenous vein appears patent and compressible segmentally. Ordering Physician: Rafael Padgett Referring Physician: Sammy Garcia Performed By: Carissa Seo, JADON, RVT
== END ==
LOC: VL 10:36 → CVS 10:40
PROVIDERS: PCP Family Medicine; Referring Provider Family Medicine; Visit Provider Family Medicine
DX: M79.89 Other specified soft tissue disorders (principal)
CPT/HCPCS: 93971

== ENCOUNTER → 2021-07-16 | Outpatient (REF) | payer SELFPAY ==
[2021-07-16 12:11] LABS: Anion Gap 7 (5-15); BUN 7 mg/dL (7-18); BUN/Creat Ratio 9.6 RATIO (10-20); Calcium,Total 9.8 mg/dL (8.5-10.1); Chloride 99 mmol/L (98-107); Creatinine, Serum 0.73 mg/dL (0.55-1.02); EST Glomerular Filtration Rate 81 mL/min (>60); Est Glom Filt Rate - Afr Amer 98 mL/min (>60); Glucose 91 mg/dL (74-106); Sodium Level 134 mmol/L (136-145)
== END | disposition home or self-care (01) ==
LOC: OLS.HOSPIC 10:40
PROVIDERS: PCP Family Medicine; Referring Provider Internal Medicine Cardiovascular Disease; Visit Provider Internal Medicine Cardiovascular Disease
DX: C53.9 Malignant neoplasm of cervix uteri, unspecified (principal)
CPT/HCPCS: 80048